=== PATIENT | male | born 1990 | race Caucasian/White ===

== ENCOUNTER 2016-09-21 06:44 | Emergency (ER) | payer BC ==
[~2016-09-21] VITALS: Ht 190.5 cm; Wt 91.0 kg
[2016-09-21 06:53] VITALS: BP 152/91; PULSE 101; RESP 18; TEMP 98.3; O2SAT 95
[2016-09-21] MEDS ORDERED: GABA800T PO (06:56)
[2016-09-21] MEDS ORDERED: SODIUM CHLOR 0.9% 1000 ML INJ 1,000 ML IV ONE ×2 (07:07→09:45)
[2016-09-21] MEDS ORDERED: SODIUM CHLORIDE 0.9% FLUSH 10 ML FLUSH IVF PRN (07:15)
--- NOTE | 2016-09-21 07:21 | PD ---
HPI Chief Complaint: OD/ Ingestion Time Seen by Provider: 07:07 Travel History International Travel<30 days: No Contact w/Intl Traveler<30days: No Traveled to known affect area: No History of Present Illness HPI This is a 26-year-old gentleman with a history of polysubstance abuse, who presents today via EMS stating that he tried to kill himself last night. The patient states he went to the beach and used cocaine. He stated after using cocaine he injected himself with morphine hoping to kill himself. When asked why he wanted to kill himself, patient states that he has a lot of stress in his life and just doesn't want to deal with it anymore. The patient denies any other ingestion. The patient states that he's has attempted suicide in the past by taking an overdose of Seroquel for which she is allergic to. There are no other complaints at the time of my examination. PFSH Past Medical History Asthma: Yes Diminished Hearing: No Musculoskeletal: Yes (CHRONIC R SHOULDER PAIN) Seizures: Yes Tetanus Vaccination: Unknown Influenza Vaccination: Yes Past Surgical History Other Surgery: Yes (WISDOM TEETH REMOVED) Social History Alcohol Use: Yes (1/2 HANDLE PER NIGHT) Tobacco Use: Yes (1 PPD) Substance Use: Yes (HEROIN, COCAINE, MORPHINE) Allergies-Medications (Allergen,Severity, Reaction): Coded Allergies: Seroquel (Verified Adverse Reaction, Unknown, Irritability/Anxiety, ) Reported Meds & Prescriptions Reported Meds & Active Scripts Active Reported Gabapentin 800 Mg Tab 800 Mg PO TID Review of Systems Except as stated in HPI: all other systems reviewed are Neg HENT: No: Headaches, Lightheadedness, Neck Pain Cardiovascular: No: Chest Pain or Discomfort Respiratory: No: Cough, Shortness of Breath Gastrointestinal: Positive: Nausea, No: Vomiting, Abdominal Pain Musculoskeletal: No: Weakness, Pain Neurologic: No: Weakness, Dizziness, Headache, Slurred Speech Psychiatric: Positive: Depression, Suicidal Ideations, Substance Abuse, No: Homicidal Ideation Physical Exam Narrative GENERAL: Well-developed well-nourished male in no acute respiratory distress. The patient was cooperative and answering questions appropriately SKIN: Warm and dry. HEAD: Atraumatic. Normocephalic. EYES: Pupils equal and round, no outwardly dilated pupils.. No scleral icterus. No injection or drainage. ENT: No nasal bleeding or discharge. Mucous membranes pink and moist. NECK: Trachea midline. No JVD. CARDIOVASCULAR: Tachycardic with regular rhythm. No murmur appreciated. RESPIRATORY: No accessory muscle use. Clear to auscultation. GASTROINTESTINAL: Abdomen soft, non-tender, nondistended. MUSCULOSKELETAL: No obvious deformities. No clubbing. No cyanosis. No edema. No skin lesions or abscesses appreciated. NEUROLOGICAL: Awake and alert. No obvious cranial nerve deficits. Motor grossly within normal limits. Normal speech. Data Data Last Documented VS Vital Signs Date Time Temp Pulse Resp B/P Pulse Ox O2 Delivery O2 Flow Rate FiO2 09/21/16 08:06 18 97 Nasal Cannula 2 09/21/16 06:53 98.3 101 152/91 Orders Complete Blood Count With Diff (09/21/16 07:07) Comprehensive Metabolic Panel (09/21/16 07:07) Chest, Single Ap (09/21/16 07:07) Iv Access Insert/Monitor (09/21/16 07:07) Ecg Monitoring (09/21/16 07:07) Oximetry (09/21/16 07:07) Sodium Chloride 0.9% Flush (Ns Flush) (09/21/16 07:15) Sodium Chlor 0.9% 1000 Ml Inj (Ns 1000 M (09/21/16 07:07) Drug Screen, Random Urine (09/21/16 07:07) Alcohol (Ethanol) (09/21/16 07:07) Salicylates (Aspirin) (09/21/16 07:07) Tylenol (Acetaminophen) (09/21/16 07:07) Ckmb (Isoenzyme) Profile (09/21/16 07:11) Troponin I (09/21/16 07:11) Calcium Carbonate Chew (Tums Chew) (09/21/16 08:00) CKMB (09/21/16 07:15) CKMB% (09/21/16 07:15) Electrocardiogram (09/21/16 06:53) Sodium Chlor 0.9% 1000 Ml Inj (Ns 1000 M (09/21/16 09:45) Labs Laboratory Tests Test 09/21/16 07:15 White Blood Count 12.0 TH/MM3 Red Blood Count 5.17 MIL/MM3 Hemoglobin 15.9 GM/DL Hematocrit 46.3 % Mean Corpuscular Volume 89.5 FL Mean Corpuscular Hemoglobin 30.8 PG Mean Corpuscular Hemoglobin 34.4 % Concent Red Cell Distribution Width 13.5 % Platelet Count 296 TH/MM3 Mean Platelet Volume 8.0 FL Neutrophils (%) (Auto) 48.0 % Lymphocytes (%) (Auto) 42.0 % Monocytes (%) (Auto) 7.7 % Eosinophils (%) (Auto) 1.7 % Basophils (%) (Auto) 0.6 % Neutrophils # (Auto) 5.8 TH/MM3 Lymphocytes # (Auto) 5.0 TH/MM3 Monocytes # (Auto) 0.9 TH/MM3 Eosinophils # (Auto) 0.2 TH/MM3 Basophils # (Auto) 0.1 TH/MM3 CBC Comment DIFF FINAL Differential Comment Sodium Level 139 MEQ/L Potassium Level 4.2 MEQ/L Chloride Level 104 MEQ/L Carbon Dioxide Level 25.4 MEQ/L Anion Gap 10 MEQ/L Blood Urea Nitrogen 18 MG/DL Creatinine 1.44 MG/DL Estimat Glomerular Filtration 60 ML/MIN Rate Random Glucose 93 MG/DL Calcium Level 8.9 MG/DL Total Bilirubin 0.3 MG/DL Aspartate Amino Transf 26 U/L (AST/SGOT) Alanine Aminotransferase 23 U/L (ALT/SGPT) Alkaline Phosphatase 79 U/L Total Creatine Kinase 423 U/L Creatine Kinase MB 1.8 NG/ML Creatine Kinase MB % 0.4 % Troponin I LESS THAN 0.02 NG/ML Total Protein 7.8 GM/DL Albumin 4.2 GM/DL Salicylates Level LESS THAN 1.7 MG/DL Acetaminophen Level LESS THAN 2.0 MCG/ML Ethyl Alcohol Level 144 MG/DL [facility] Medical Decision Making Medical Screen Exam Complete: Yes Emergency Medical Condition: Yes Differential Diagnosis Intentional overdose versus polysubstance abuse versus substance induced mood disorder versus electrolyte abnormalities. Narrative Course 26 year-old gentleman presents with complaints that he tried to commit suicide by doing cocaine and shooting up opiates. The patient states he's tried suicide in the past. The patient is awake alert and cooperative. He states he' s been not been drinking or eating well. His creatinine was 1.44. The patient' s been given 2 boluses of IV saline. Alcohol is 144. The rest of his labs are within normal limits. The patient will be medically cleared. He was placed on a Ram act by this physician as he was not Ram acted by the police when EMS brought him to the hospital. Diagnosis Primary Impression: SUICIDAL IDEATIONS Additional Impressions: Polysubstance abuse medically clear Harjinder Hurst MD Sep 21, 2016 07:21 Harjinder Hurst MD Sep 21, 2016 07:21
--- NOTE | 2016-09-21 07:42 | RADRPT ---
EXAM DATE/TIME: 09/21/2016 07:21 [place] COMPARISON: No previous studies available for comparison. INDICATIONS : Syncopal episode. Possible overdose. MEDICAL HISTORY : None. SURGICAL HISTORY : None. ENCOUNTER: Initial ACUITY: 1 day PAIN SCORE: 0/10 LOCATION: chest FINDINGS: A single view of the chest demonstrates the lungs to be symmetrically aerated without evidence of mas s, infiltrate or effusion. The cardiomediastinal contours are unremarkable. Osseous structures are intact. CONCLUSION: Normal examination. Edna Lin MD on September 21, 2016 at 7:40 Board Certified Radiologist. This report was verified electronically.
[2016-09-21 07:50] LABS: AUTOMATED NEUTROPHIL # 5.8 TH/MM3 (1.8-7.7); BASOPHIL # 0.1 TH/MM3 (0-0.2); BASOPHIL % 0.6 % (0.0-2.0); EOSINOPHIL # 0.2 TH/MM3 (0-0.4); EOSINOPHIL % 1.7 % (0.0-4.0); HEMATOCRIT 46.3 % (39.0-51.0); HEMO FLAGS DIFF FINAL; MEAN CELL VOLUME 89.5 FL (80.0-100.0); MEAN CORPUSCULAR HEMOGLOBIN 30.8 PG (27.0-34.0); MEAN CORPUSCULAR HGB CONC 34.4 % (32.0-36.0); MONO % 7.7 % (0.0-8.0); PLATELET COUNT 296 TH/MM3 (150-450); RED BLOOD COUNT 5.17 MIL/MM3 (4.50-5.90); RED CELL DISTRIBUTION WIDTH 13.5 % (11.6-17.2)
[2016-09-21] MEDS ORDERED: CALCIUM CARBONATE 500 MG CHEWABLE TAB CHEW ONE (08:00)
[2016-09-21 08:06] VITALS: RESP 18; O2SAT 97
[2016-09-21 08:13] LABS: ALKALINE PHOSPHATASE 79 U/L (45-117); TOTAL BILIRUBIN ADULT 0.3 MG/DL (0.2-1.0)
[2016-09-21 08:26] LABS: ALT (GPT) 23 U/L (12-78); ANION GAP 10 MEQ/L (5-15); AST (GOT) 26 U/L (15-37); BICARBONATE 25.4 MEQ/L (21.0-32.0); BLOOD UREA NITROGEN 18 MG/DL (7-18); CHLORIDE 104 MEQ/L (98-107); GLOMERULAR FILTRATION RATE 60 ML/MIN (>89); SODIUM (NA) 139 MEQ/L (136-145)
[2016-09-21 08:29] LABS: ACETAMINOPHEN LESS THAN 2.0 MCG/ML (10.0-30.0); CREATINE KINASE 423 U/L (39-308); POTASSIUM 4.2 MEQ/L (3.5-5.1)
[2016-09-21 08:41] LABS: CKMB 1.8 NG/ML (0.5-3.6)
[2016-09-21 11:29] LABS: AMPHETAMINE, URINE NEG (NEG); BARBITURATES, URINE NEG (NEG); COCAINE, URINE POS (NEG)
[2016-09-21 14:10] VITALS: BP 130/84; PULSE 98; RESP 16; TEMP 98.4; O2SAT 98
--- NOTE | 2016-09-21 15:51 | EKG ---
Date Performed: 09/21/2016 Time Performed: 06:53:52 PTAGE: 26 years EKG: SINUS TACHYCARDIA ST ELEVATION, PROBABLY EARLY REPOLARIZATION ABNORMAL RHYTHM ECG NO PREVIOUS TRACING DOCTOR: Kevin Vogt Interpretating Date/Time 09/21/2016 15:47:47
--- NOTE | 2016-09-21 16:19 | EKG ---
Date Performed: 09/21/2016 Time Performed: 09:48:38 PTAGE: 26 years EKG: Sinus rhythm Since previous tracing, no significant change noted NORMAL ECG PREVIOUS TRACING : 09/21/2016 06.53 DOCTOR: Kevin Vogt Interpretating Date/Time 09/21/2016 16:18:05
[2016-09-21 18:25] VITALS: BP 140/62; PULSE 65; RESP 18
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
[2016-09-21 22:16] VITALS: BP 109/62; PULSE 68; RESP 16; O2SAT 98
[2016-09-22 02:05] VITALS: BP 117/60; PULSE 53; RESP 16; O2SAT 97
[2016-09-22 06:25] VITALS: BP 120/67; PULSE 62; RESP 18; O2SAT 98
== END 2016-09-22 09:43 ==
LOC: NEPC 06:44 → NEPJ 09-22 09:43
DX: Z02.89 Encounter for other administrative examinations (principal); F19.94 Other psychoactive substance use, unspecified with psychoactive substance-induced mood disorder; F19.10 Other psychoactive substance abuse, uncomplicated; R45.851 Suicidal ideations; R94.31 Abnormal electrocardiogram [ECG] [EKG]; F17.200 Nicotine dependence, unspecified, uncomplicated; Z87.09 Personal history of other diseases of the respiratory system; Z87.39 Personal history of other diseases of the musculoskeletal system and connective tissue; Z86.69 Personal history of other diseases of the nervous system and sense organs
CPT/HCPCS: 71010; 80053; 80307; 82550; 82552; 84484; 85025; 93005; 96360; 96361; 99285; J7030

== ENCOUNTER 2017-12-01 05:10 | Emergency (ER) | payer BC ==
[~2017-12-01] VITALS: Ht 190.5 cm; Wt 100.0 kg
[~2017-12-01 05:10] MED LIST: GABA800T PO
[2017-12-01 05:13] VITALS: BP 129/64; PULSE 100; RESP 16; TEMP 99; O2SAT 99
[2017-12-01] MEDS ORDERED: TETANUS/DIPHTHERIA TOXOID ADULT 0.5 ML VIAL IM ONE (05:30)
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
[2017-12-01] MEDS ORDERED: TRAZ1TAB14 PO (05:31)
[2017-12-01 06:02] LABS: AUTOMATED NEUTROPHIL # 4.9 TH/MM3 (1.8-7.7); BASOPHIL # 0.1 TH/MM3 (0-0.2); BASOPHIL % 0.8 % (0.0-2.0); EOSINOPHIL # 0.3 TH/MM3 (0-0.4); EOSINOPHIL % 3.2 % (0.0-4.0); HEMATOCRIT 42.8 % (39.0-51.0); HEMOGLOBIN 14.7 GM/DL (13.0-17.0); LYMPHOCYTE # 4.1 TH/MM3 (1.0-4.8); MEAN CELL VOLUME 89.8 FL (80.0-100.0); MEAN CORPUSCULAR HEMOGLOBIN 30.8 PG (27.0-34.0); MEAN CORPUSCULAR HGB CONC 34.3 % (32.0-36.0); MONO % 6.5 % (0.0-8.0); MONOCYTE # 0.7 TH/MM3 (0-0.9); NEUT % 48.5 % (16.0-70.0); PLATELET COUNT 223 TH/MM3 (150-450); RED BLOOD COUNT 4.76 MIL/MM3 (4.50-5.90); RED CELL DISTRIBUTION WIDTH 13.9 % (11.6-17.2); WHITE BLOOD COUNT 10.1 TH/MM3 (4.0-11.0)
[2017-12-01 06:19] LABS: ALBUMIN 3.7 GM/DL (3.4-5.0); ALT (GPT) 30 U/L (12-78); AST (GOT) 27 U/L (15-37); BICARBONATE 21.8 MEQ/L (21.0-32.0); BLOOD UREA NITROGEN 10 MG/DL (7-18); CALCIUM 8.3 MG/DL (8.5-10.1); CHLORIDE 108 MEQ/L (98-107); CREATININE 1.23 MG/DL (0.60-1.30); GLOMERULAR FILTRATION RATE 72 ML/MIN (>89); GLUCOSE,RANDOM 93 MG/DL (74-106); SODIUM (NA) 143 MEQ/L (136-145)
[2017-12-01 06:30] LABS: ALKALINE PHOSPHATASE 70 U/L (45-117); TOTAL BILIRUBIN ADULT 0.3 MG/DL (0.2-1.0); TOTAL PROTEIN 6.5 GM/DL (6.4-8.2)
[2017-12-01 06:32] LABS: ACETAMINOPHEN LESS THAN 2.0 MCG/ML (10.0-30.0)
--- NOTE | 2017-12-01 09:11 | PD ---
Physical Exam Time Seen by Provider: 09:[address] Hewitt has evaluated patient and cleared the patient for discharge. Data Data Last Documented VS Vital Signs Date Time Temp Pulse Resp B/P (MAP) Pulse Ox O2 Delivery O2 Flow Rate FiO2 12/01/17 05:13 99.0 100 16 129/64 (85) 99 Orders Orders Tetanus/Diphtheria Tox Adult (Tetanus/Di (12/01/17 05:30) Wound Care (12/01/17 05:26) Complete Blood Count With Diff (12/01/17 05:26) Comprehensive Metabolic Panel (12/01/17 05:26) Thyroid Stimulating Hormone (12/01/17 05:26) Psych Screen (12/01/17 05:26) Drug Screen, Random Urine (12/01/17 05:26) Alcohol (Ethanol) (12/01/17 05:26) Salicylates (Aspirin) (12/01/17 05:26) Tylenol (Acetaminophen) (12/01/17 05:26) Diet Regular Basic (12/01/17 Breakfast) Labs Laboratory Tests Test 12/01/17 05:45 White Blood Count 10.1 TH/MM3 Red Blood Count 4.76 MIL/MM3 Hemoglobin 14.7 GM/DL Hematocrit 42.8 % Mean Corpuscular Volume 89.8 FL Mean Corpuscular Hemoglobin 30.8 PG Mean Corpuscular Hemoglobin Concent 34.3 % Red Cell Distribution Width 13.9 % Platelet Count 223 TH/MM3 Mean Platelet Volume 8.0 FL Neutrophils (%) (Auto) 48.5 % Lymphocytes (%) (Auto) 41.0 % Monocytes (%) (Auto) 6.5 % Eosinophils (%) (Auto) 3.2 % Basophils (%) (Auto) 0.8 % Neutrophils # (Auto) 4.9 TH/MM3 Lymphocytes # (Auto) 4.1 TH/MM3 Monocytes # (Auto) 0.7 TH/MM3 Eosinophils # (Auto) 0.3 TH/MM3 Basophils # (Auto) 0.1 TH/MM3 CBC Comment DIFF FINAL Differential Comment Blood Urea Nitrogen 10 MG/DL Creatinine 1.23 MG/DL Random Glucose 93 MG/DL Total Protein 6.5 GM/DL Albumin 3.7 GM/DL Calcium Level 8.3 MG/DL Alkaline Phosphatase 70 U/L Aspartate Amino Transf (AST/SGOT) 27 U/L Alanine Aminotransferase (ALT/SGPT) 30 U/L Total Bilirubin 0.3 MG/DL Sodium Level 143 MEQ/L Potassium Level 3.5 MEQ/L Chloride Level 108 MEQ/L Carbon Dioxide Level 21.8 MEQ/L Anion Gap 13 MEQ/L Estimat Glomerular Filtration Rate 72 ML/MIN Thyroid Stimulating Hormone 3rd Gen 1.330 uIU/ML Salicylates Level 2.5 MG/DL Urine Opiates Screen NEG Acetaminophen Level LESS THAN 2.0 MCG/ML Urine Barbiturates Screen NEG Urine Amphetamines Screen NEG Urine Benzodiazepines Screen NEG Urine Cocaine Screen POS Urine Cannabinoids Screen NEG Ethyl Alcohol Level 101 MG/DL MDM Supervised Visit with [facility]: No Narrative Course Dr. Hewitt has evaluated patient and cleared the patient for discharge. Patient has a follow-up appointment with his psychiatrist sometime this month, but cannot verify the exact date. patient contracts safety. Denies suicidal or homicidal ideations. Patient will be provided community resource packet to [facility] for follow-up. Has friends and family for support. Patient was medically cleared by alternate provider prior to psych screening. Patient has been evaluated by psychiatry and and is now cleared for discharge. Diagnosis Primary Impression: Substance induced mood disorder Referrals: [facility] (Out patient) [facility] Primary Care Physician Psychiatrist Tor [facility] Patient Instructions: Abuse of Alcohol (ED), Alcohol Dependence (ED), Alcohol Intoxication (ED), General Instructions, Polysubstance Abuse (ED) Additional Instruction: Contract safety to your self and others Stop using drugs Stop drinking alcohol or drink alcohol in moderation Follow-up in the community with support, such as with alcoholic anonymous and/ or her Narcotics Anonymous Follow-up with psychiatry Follow-up with primary care provider Follow-up with [facility] Return to the emergency department immediately with worsening of symptoms Med/Other Pt SpecificInfo: No Change to Meds, No Meds Exist/No RX given Disposition: 01 DISCHARGE HOME Condition: Stable Shu Feliciano Dec 01, 2017 09:11
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
== END 2017-12-01 12:03 | disposition home or self-care (01) ==
LOC: NEPD 05:10
DX: F10.14 Alcohol abuse with alcohol-induced mood disorder (principal); F14.10 Cocaine abuse, uncomplicated; F17.200 Nicotine dependence, unspecified, uncomplicated; F31.9 Bipolar disorder, unspecified; Y90.5 Blood alcohol level of 100-119 mg/100 ml; Z23 Encounter for immunization; Z79.899 Other long term (current) drug therapy
CPT/HCPCS: 80053; 80307; 84443; 85025; 90471; 90714

== ENCOUNTER 2018-02-28 05:01 | Inpatient (IN) ==
[2018-02-28] MEDS ORDERED: Charcoal Activated Liq 25 GM/120 ML Bottle NG/OG ONE (05:22)
[2018-02-28] MEDS ORDERED: SOD CHLORIDE 0.9% IV.SIG ONE (05:53)
[2018-02-28 05:56] LABS: Baso # (Auto) 0.1 th/mm3 (0.0-0.2); Baso % (Auto) 0.7 % (0.0-2.0); Eos # (Auto) 0.1 th/mm3 (0.0-0.4); Eos % (Auto) 1.4 % (0.0-4.0); Hematocrit 42.1 % (39.0-51.0); Hemoglobin 14.4 gm/dL (13.0-17.0); Lymph # (Auto) 2.9 th/mm3 (1.0-4.8); Lymph % (Auto) 34.8 % (9.0-44.0); Mean Corpuscular HGB Conc 34.2 % (32.0-36.0); Mean Corpuscular Hemoglobin 31.6 pg (27.0-34.0); Mean Corpuscular Volume 92.4 fL (80.0-100.0); Mean Platelet Volume 8.2 fL (7.0-11.0); Mono # (Auto) 0.5 th/mm3 (0.0-0.9); Mono % (Auto) 6.5 % (0.0-8.0); Neut # (Auto) 4.8 th/mm3 (1.8-7.7); Neut % (Auto) 56.6 % (16.0-70.0); Platelet Count 206 th/mm3 (150-450); Red Blood Count 4.56 mil/mm3 (4.50-5.90); Red Cell Distribution Width 13.5 % (11.6-17.2); White Blood Count 8.5 th/mm3 (4.0-11.0)
--- NOTE | 2018-02-28 06:01 | ED ---
HPI General Chief Complaint: Psychiatric Symptoms Stated Complaint: psych eval/ DBPD Time Seen by Provider: 02/28/18 06:00 Source: patient Mode of arrival: ambulatory Limitations: no limitations History of Present Illness HPI Narrative: Patient took 20 tablets of 100 mg trazodone in an attempt to hurt himself he is depressed and was thinking of suicide and took an overdose intentionally. In the ER he is slightly sleepy but able to converse and ambulate without problem he says the ingestion happened within the last hour prior to arrival in the ER and he is immediately given activated charcoal and labs are sent fluid is started he is cooperative at this time psych screen labs for psych clearance and he will be observed for 6-8 hours before being medically cleared for psych eval Related Data Home Medications Medication Instructions Recorded Confirmed esomeprazole magnesium [Nexium] 40 mg PO DAILY 02/28/18 02/28/18 gabapentin 800 mg PO QID 02/28/18 02/28/18 Allergies Allergy/AdvReac Type Severity Reaction Status Date / Time quetiapine AdvReac Unknown Irritabilit Unverified 12/01/17 05:30 y/Anxiety Review of Systems ROS: all other systems reviewed are negative [facility] Social History Social History Smoking Status: Current every day smoker Tobacco Type: Cigarettes How Often Do You Have a Drink Containing Alcohol: 4 or more times a week Recent Travel in [facility] within the Last 8 Weeks: No Recent Out of Country Travel within the Last 8 Weeks: No Substance Abuse Detail Crack/Cocaine: Substance Use Status: Active Route Used Substance Abuse: Inhalation Substance Frequency: OCCASIONALLY Reason for Use: Get High Immunization History Tetanus Immunization: Unsure Exam Narrative Exam Narrative: GENERAL: cooperative slightly sleepy SKIN: Warm and dry. HEAD: Atraumatic. Normocephalic. EYES: Pupils equal and round. No scleral icterus. No injection or drainage. ENT: No nasal bleeding or discharge. Mucous membranes pink and moist. NECK: Trachea midline. No JVD. CARDIOVASCULAR: Regular rate and rhythm. RESPIRATORY: No accessory muscle use. Clear to auscultation. Breath sounds equal bilaterally. GASTROINTESTINAL: Abdomen soft, non-tender, nondistended. Hepatic and splenic margins not palpable. MUSCULOSKELETAL: Extremities without clubbing, cyanosis, or edema. No obvious deformities. NEUROLOGICAL: Awake and alert. No obvious cranial nerve deficits. Motor grossly within normal limits. Five out of 5 muscle strength in the arms and legs. Normal speech. PSYCHIATRIC: Appropriate mood and affect; insight and judgment normal. Course Initial Documented Vital Signs Pulse Rate 180 H 02/28/18 05:15 Respiratory Rate 16 02/28/18 05:15 Blood Pressure 117/53 L 02/28/18 05:15 Pulse Oximetry 96 02/28/18 05:15 Last Documented Vital Signs Temperature 98.9 F 03/01/18 03:00 Pulse Rate 92 H 03/01/18 09:00 Respiratory Rate 17 03/01/18 09:00 Blood Pressure 108/71 03/01/18 09:00 Pulse Oximetry 94 L 03/01/18 03:00 Critical Care Time Critical Care Time: Yes Total Critical Care Time: 30 (airwat evaluation and activated charchoal and constant re-eval of somnolence to arouse and assure aiway and cardiac conduction remain stable admit ICU) Attestation: airway and cardiac monitoring Medical Decision Making MDM Narrative Medical decision making narrative: pt given ACTIVATED CHARCHOAL 50 gr PO and supportive care with NS and close observation for airway protection , He is maintaining his airway without any need for intubation at this time 98% sat yinka RR Medical Screen Exam Complete: Yes Emergency Medical Condition: Yes Differential Diagnosis Differential Diagnosis: pt took trazadone overdose and polysubstance possible SI with attempt , and severe somnolence Lab Data Result diagrams: 03/01/18 03:10 03/01/18 03:10 Lab Results 02/28/18 02/28/18 02/28/18 Range/Units 05:45 05:45 05:45 WBC 8.5 (4.0-11.0) th/mm3 RBC 4.56 (4.50-5.90) mil/mm3 Hgb 14.4 (13.0-17.0) gm/dL Hct 42.1 (39.0-51.0) % MCV 92.4 (80.0-100.0) fL MCH 31.6 (27.0-34.0) pg MCHC 34.2 (32.0-36.0) % RDW 13.5 (11.6-17.2) % Plt Count 206 (150-450) th/mm3 MPV 8.2 (7.0-11.0) fL Neut % (Auto) 56.6 (16.0-70.0) % Lymph % (Auto) 34.8 (9.0-44.0) % King % (Auto) 6.5 (0.0-8.0) % Eos % (Auto) 1.4 (0.0-4.0) % Baso % (Auto) 0.7 (0.0-2.0) % Neut # (Auto) 4.8 (1.8-7.7) th/mm3 Lymph # (Auto) 2.9 (1.0-4.8) th/mm3 King # (Auto) 0.5 (0.0-0.9) th/mm3 Eos # (Auto) 0.1 (0.0-0.4) th/mm3 Baso # (Auto) 0.1 (0.0-0.2) th/mm3 WBC Differential . Differential Comment Auto diff final PT (9.8-11.6) sec INR Ratio APTT (24.3-30.1) sec Sodium 143 (136-145) meq/L Potassium 3.4 L (3.5-5.1) meq/L Chloride 106 (98-107) meq/L Carbon Dioxide 21.0 (21.0-32.0) meq/L Anion Gap 16 H (5-15) meq/L BUN 9 (7-18) mg/dL Creatinine 1.29 (0.60-1.30) mg/dL Estimated GFR 68 L (>89) mL/min Random Glucose 89 (74-106) mg/dL Calcium 8.0 L (8.5-10.1) mg/dL Prot Corrected Calcium (8.5-10.1) mg/dL Phosphorus (2.5-4.9) mg/dL Magnesium (1.5-2.5) mg/dL Total Bilirubin 0.3 (0.2-1.0) mg/dL AST 22 (15-37) U/L ALT 30 (12-78) U/L Alkaline Phosphatase 74 (45-117) U/L Total Creatine Kinase (39-308) U/L CK-MB (CK-2) (0.5-3.6) ng/mL CK-MB (CK-2) % (0.0-4.0) % Total Protein 6.8 (6.4-8.2) g/dL Albumin 3.7 (3.4-5.0) g/dL TSH 1.220 (0.358-3.740) uIU/mL Nasal Screen MRSA (PCR) (Negative) Salicylates 2.8 (2.8-20.0) mg/dL Urine Opiates Screen (Neg) Acetaminophen Less than 2.0 L (10.0-30.0) mcg/mL Ur Barbiturates Screen (Neg) Ur Amphetamines Screen (Neg) U Benzodiazepines Scrn (Neg) Urine Cocaine Screen (Neg) U Cannabinoids Screen (Neg) Serum Alcohol 93 H (0-5) mg/dL 02/28/18 02/28/18 02/28/18 Range/Units 08:13 09:45 14:00 WBC (4.0-11.0) th/mm3 RBC (4.50-5.90) mil/mm3 Hgb (13.0-17.0) gm/dL Hct (39.0-51.0) % MCV (80.0-100.0) fL MCH (27.0-34.0) pg MCHC (32.0-36.0) % RDW (11.6-17.2) % Plt Count (150-450) th/mm3 MPV (7.0-11.0) fL Neut % (Auto) (16.0-70.0) % Lymph % (Auto) (9.0-44.0) % King % (Auto) (0.0-8.0) % Eos % (Auto) (0.0-4.0) % Baso % (Auto) (0.0-2.0) % Neut # (Auto) (1.8-7.7) th/mm3 Lymph # (Auto) (1.0-4.8) th/mm3 King # (Auto) (0.0-0.9) th/mm3 Eos # (Auto) (0.0-0.4) th/mm3 Baso # (Auto) (0.0-0.2) th/mm3 WBC Differential Differential Comment PT (9.8-11.6) sec INR Ratio APTT (24.3-30.1) sec Sodium (136-145) meq/L Potassium (3.5-5.1) meq/L Chloride (98-107) meq/L Carbon Dioxide (21.0-32.0) meq/L Anion Gap (5-15) meq/L BUN (7-18) mg/dL Creatinine (0.60-1.30) mg/dL Estimated GFR (>89) mL/min Random Glucose (74-106) mg/dL Calcium (8.5-10.1) mg/dL Prot Corrected Calcium (8.5-10.1) mg/dL Phosphorus (2.5-4.9) mg/dL Magnesium (1.5-2.5) mg/dL Total Bilirubin (0.2-1.0) mg/dL AST (15-37) U/L ALT (12-78) U/L Alkaline Phosphatase (45-117) U/L Total Creatine Kinase 386 H (39-308) U/L CK-MB (CK-2) 2.9 (0.5-3.6) ng/mL CK-MB (CK-2) % 0.8 (0.0-4.0) % Total Protein (6.4-8.2) g/dL Albumin (3.4-5.0) g/dL TSH (0.358-3.740) uIU/mL Nasal Screen MRSA (PCR) Not detected (Negative) Salicylates (2.8-20.0) mg/dL Urine Opiates Screen Neg (Neg) Acetaminophen (10.0-30.0) mcg/mL Ur Barbiturates Screen Neg (Neg) Ur Amphetamines Screen Neg (Neg) U Benzodiazepines Scrn Neg (Neg) Urine Cocaine Screen Pos H (Neg) U Cannabinoids Screen Neg (Neg) Serum Alcohol (0-5) mg/dL 02/28/18 02/28/18 03/01/18 Range/Units 14:00 15:03 03:10 WBC 6.6 9.0 (4.0-11.0) th/mm3 RBC 4.46 L 4.16 L (4.50-5.90) mil/mm3 Hgb 13.9 13.1 (13.0-17.0) gm/dL Hct 41.7 39.1 (39.0-51.0) % MCV 93.6 93.9 (80.0-100.0) fL MCH 31.3 31.5 (27.0-34.0) pg MCHC 33.4 33.5 (32.0-36.0) % RDW 13.8 13.7 (11.6-17.2) % Plt Count 192 168 (150-450) th/mm3 MPV 8.1 8.3 (7.0-11.0) fL Neut % (Auto) 40.3 52.2 (16.0-70.0) % Lymph % (Auto) 43.4 34.4 (9.0-44.0) % King % (Auto) 8.3 H 7.5 (0.0-8.0) % Eos % (Auto) 7.1 H 5.4 H (0.0-4.0) % Baso % (Auto) 0.9 0.5 (0.0-2.0) % Neut # (Auto) 2.7 4.7 (1.8-7.7) th/mm3 Lymph # (Auto) 2.9 3.1 (1.0-4.8) th/mm3 King # (Auto) 0.6 0.7 (0.0-0.9) th/mm3 Eos # (Auto) 0.5 H 0.5 H (0.0-0.4) th/mm3 Baso # (Auto) 0.1 0.0 (0.0-0.2) th/mm3 WBC Differential . . Differential Comment Auto diff final Auto diff final PT (9.8-11.6) sec INR Ratio APTT (24.3-30.1) sec Sodium 149 H (136-145) meq/L Potassium 4.3 D (3.5-5.1) meq/L Chloride 116 H D (98-107) meq/L Carbon Dioxide 23.7 (21.0-32.0) meq/L Anion Gap 9 (5-15) meq/L BUN 7 (7-18) mg/dL Creatinine 1.06 (0.60-1.30) mg/dL Estimated GFR 85 L (>89) mL/min Random Glucose 83 (74-106) mg/dL Calcium 7.2 L* D (8.5-10.1) mg/dL Prot Corrected Calcium 7.9 L (8.5-10.1) mg/dL Phosphorus 3.0 (2.5-4.9) mg/dL Magnesium 2.1 (1.5-2.5) mg/dL Total Bilirubin 0.3 (0.2-1.0) mg/dL AST 19 (15-37) U/L ALT 27 (12-78) U/L Alkaline Phosphatase 64 (45-117) U/L Total Creatine Kinase (39-308) U/L CK-MB (CK-2) (0.5-3.6) ng/mL CK-MB (CK-2) % (0.0-4.0) % Total Protein 5.8 L D (6.4-8.2) g/dL Albumin 3.2 L (3.4-5.0) g/dL TSH (0.358-3.740) uIU/mL Nasal Screen MRSA (PCR) (Negative) Salicylates (2.8-20.0) mg/dL Urine Opiates Screen (Neg) Acetaminophen (10.0-30.0) mcg/mL Ur Barbiturates Screen (Neg) Ur Amphetamines Screen (Neg) U Benzodiazepines Scrn (Neg) Urine Cocaine Screen (Neg) U Cannabinoids Screen (Neg) Serum Alcohol (0-5) mg/dL 03/01/18 03/01/18 Range/Units 03:10 03:10 WBC (4.0-11.0) th/mm3 RBC (4.50-5.90) mil/mm3 Hgb (13.0-17.0) gm/dL Hct (39.0-51.0) % MCV (80.0-100.0) fL MCH (27.0-34.0) pg MCHC (32.0-36.0) % RDW (11.6-17.2) % Plt Count (150-450) th/mm3 MPV (7.0-11.0) fL Neut % (Auto) (16.0-70.0) % Lymph % (Auto) (9.0-44.0) % King % (Auto) (0.0-8.0) % Eos % (Auto) (0.0-4.0) % Baso % (Auto) (0.0-2.0) % Neut # (Auto) (1.8-7.7) th/mm3 Lymph # (Auto) (1.0-4.8) th/mm3 King # (Auto) (0.0-0.9) th/mm3 Eos # (Auto) (0.0-0.4) th/mm3 Baso # (Auto) (0.0-0.2) th/mm3 WBC Differential Differential Comment PT 10.0 (9.8-11.6) sec INR 1.0 Ratio APTT 25.0 (24.3-30.1) sec Sodium 145 (136-145) meq/L Potassium 3.5 D (3.5-5.1) meq/L Chloride 113 H (98-107) meq/L Carbon Dioxide 23.3 (21.0-32.0) meq/L Anion Gap 9 (5-15) meq/L BUN 10 (7-18) mg/dL Creatinine 1.09 (0.60-1.30) mg/dL Estimated GFR 82 L (>89) mL/min Random Glucose 94 (74-106) mg/dL Calcium 7.7 L (8.5-10.1) mg/dL Prot Corrected Calcium (8.5-10.1) mg/dL Phosphorus 3.8 (2.5-4.9) mg/dL Magnesium 2.0 (1.5-2.5) mg/dL Total Bilirubin (0.2-1.0) mg/dL AST (15-37) U/L ALT (12-78) U/L Alkaline Phosphatase (45-117) U/L Total Creatine Kinase (39-308) U/L CK-MB (CK-2) (0.5-3.6) ng/mL CK-MB (CK-2) % (0.0-4.0) % Total Protein (6.4-8.2) g/dL Albumin (3.4-5.0) g/dL TSH (0.358-3.740) uIU/mL Nasal Screen MRSA (PCR) (Negative) Salicylates (2.8-20.0) mg/dL Urine Opiates Screen (Neg) Acetaminophen (10.0-30.0) mcg/mL Ur Barbiturates Screen (Neg) Ur Amphetamines Screen (Neg) U Benzodiazepines Scrn (Neg) Urine Cocaine Screen (Neg) U Cannabinoids Screen (Neg) Serum Alcohol (0-5) mg/dL Discharge Plan Discharge Disposition Patient Disposition: 01 Discharge Home Discharge Condition Condition: Good Discharge Order Discharge Orders: Discharge Order (Routine); Ordered 03/01/18 Ordered By: Chilo Ferrer Physicians Team ED Provider: Ahsan Mejía Primary Care Provider: Primary Care Eboni Odom Attending Provider: Chilo Ferrer Other Providers: Jean Best ED Status: Left Department Discharge Information Discharge Date/Time: 02/28/18 08:13
[2018-02-28 06:25] LABS: Alkaline Phosphatase 74 U/L (45-117); Total Protein 6.8 g/dL (6.4-8.2)
[2018-02-28] MEDS ORDERED: Bisacodyl 10 MG Supp RECTAL PRN (06:31)
[2018-02-28] MEDS ORDERED: Potassium Chlor 20 mEq Premix 20 MEQ/100 ML PIGGYBACK IV.SIG PRN ×2 (06:35)
[2018-02-28] MEDS ORDERED: Magnesium Sulfate Inj 4 GM in Sodium Chlor 0.9% Inj 92 ML IV.SIG PRN (06:35)
[2018-02-28] MEDS ORDERED: Potassium Phosphate 500 MG Soluble Tablet PO PRN ×2 (06:35)
[2018-02-28] MEDS ORDERED: Potassium Chloride 25 MEQ Effervescent Tablet PO PRN (06:35)
[2018-02-28] MEDS ORDERED: Potassium Chlor 40 mEq Premix 40 MEQ/100 ML PIGGYBACK IV.SIG PRN ×2 (06:35)
[2018-02-28] MEDS ORDERED: Dextrose 50% in Water 50 ML Vial IV.PUSH PRN (06:35)
[2018-02-28] MEDS ORDERED: Magnesium Oxide 400 MG Tablet PO PRN (06:35)
[2018-02-28] MEDS ORDERED: Magnesium Sulfate Inj 2 GM in Sodium Chlor 0.9% Inj 96 ML IV.SIG PRN (06:35)
[2018-02-28] MEDS ORDERED: Sodium Phosphate Inj 30 MMOL in Sodium Chlor 0.9% Inj 250 ML IV.SIG PRN (06:35)
[2018-02-28] MEDS ORDERED: Potassium Phosphate Inj 30 MMOL in Sodium Chlor 0.9% Inj 250 ML IV.SIG PRN (06:35)
[2018-02-28 06:45] LABS: Alanine Aminotransferase 30 U/L (12-78); Albumin 3.7 g/dL (3.4-5.0); Anion Gap 16 meq/L (5-15); Aspartate Aminotransferase 22 U/L (15-37); Blood Urea Nitrogen 9 mg/dL (7-18); Chloride 106 meq/L (98-107); Glomerular Filtration Rate 68 mL/min (>89); Glucose,Random 89 mg/dL (74-106); Potassium 3.4 meq/L (3.5-5.1); Sodium 143 meq/L (136-145)
[2018-02-28] MEDS ORDERED: Sod Chloride 0.9% Inj 1,000 ML IV.CONT SCH (06:45)
[2018-02-28 06:46] LABS: Alcohol 93 mg/dL (0-5)
[2018-02-28] MEDS ORDERED: Senna/Docusate Sodium 8.6/50 MG Tablet PO SCH (09:00)
[2018-02-28] MEDS: Heparin - SQ 10,000 UNITS/ML Vial SQ SCH ×2 (09:10→21:31)
[2018-02-28] MEDS ORDERED: Folic Acid 1 MG Tablet PO SCH (09:15)
--- NOTE | 2018-02-28 09:50 | MH ---
cc: Sylwia Ward MD DATE OF ADMISSION: 02/28/2018 HISTORY OF PRESENT ILLNESS: The patient is a 27-year-old male with a history of bronchial asthma, who presented to [facility] ED with altered mental status. Per ED records, patient took 20 tablets of 100 mg of trazodone in attempt to hurt himself. The patient was thinking of suicide and is depressed. He was given activated charcoal and IV fluids. His alcohol level is 93 and a urine drug screen is pending. Most of the history was obtained from reviewing medical records. He is on room air oxygen and afebrile. PAST MEDICAL HISTORY: Significant for bronchial asthma, chronic pain in the left shoulder. PAST SURGICAL HISTORY: Previous wisdom teeth removed. ALLERGIES: QUETIAPINE. SOCIAL HISTORY: Smoker. Active drinker. FAMILY HISTORY: Noncontributing to present illness. REVIEW OF SYSTEMS: Limited. PHYSICAL EXAMINATION: GENERAL: A 27-year-old male lying in bed, in no acute respiratory distress. VITAL SIGNS: Afebrile, pulse of 81, respiratory rate of 14, blood pressure 114/57, saturation 97%. HEENT: Atraumatic, normocephalic. Pupils are equal, round, reactive to light and accommodation. Extraocular muscles intact. Conjunctivae pink. Nonicteric sclerae. Oral mucosa within normal. NECK: Supple. No JVD, adenopathy, or thyromegaly. Trachea midline. CARDIOVASCULAR: Regular rate and rhythm. Normal S1, S2. No murmurs, rubs or gallops noted. PULMONARY: Bilateral equal air entry. No rales or wheezing. ABDOMEN: Soft, nontender, nondistended, positive bowel sounds. EXTREMITIES: No cyanosis, clubbing, edema. NEUROLOGIC: No focal sensory deficit. LABORATORY DATA: Sodium 143, potassium 3.4, chloride 106, CO2 of 21, BUN 9, creatinine 1.29, glucose of 89. LFTs within normal. CBC: WBC 8.5, hemoglobin 14.4, hematocrit 42, platelet count 206. Alcohol level 93. Tylenol level less than 2.0. Aspirin 2.8. EKG showed sinus rhythm with a rate of 90 beats per minute. ASSESSMENT: 1. Altered mental status. 2. Drug overdose with trazodone. 3. Depression and suicide attempt. 4. Alcohol use with elevated alcohol level on arrival. 5. Hypokalemia. 6. History of bronchial asthma. RECOMMENDATIONS: 1. Monitor neuro status closely and avoid any sedatives. Place on thiamine, multivitamins and folic acid. 2. Obtain a urine drug screen. 3. Consult psych service. 4. Monitor heart rate and blood pressure and maintain MAP greater than 65 mmHg. Continue with IV fluids and that is at 84 mL an hour. 5. Monitor renal function, I's and O's, and electrolyte replacement per protocol. We will need potassium replacement. 6. Keep n.p.o. for now until mental status improves and place on Protonix 40 mg daily for GI prophylaxis. 7. Monitor for signs of infection, which include fever and WBC. Burrell culture if spikes a fever. 8. Monitor CBC. 9. Sliding scale insulin with Accu-Cheks to maintain euglycemia. 10. Continue with oxygen p.r.n. to maintain saturations above 92% and bronchodilators on a p.r.n. basis. 11. Monitor CBC. 12. GI prophylaxis with Protonix and DVT prophylaxis with SCDs and heparin subcutaneous. 13. Further recommendations will be based on hospital course. MD CHRISTIAN Rincon/gatito , 09:12 AM , 09:23 AM
--- NOTE | 2018-02-28 09:56 | P.CONPSY ---
Provisional Diagnosis Admission Date: February 28, 2018 06:28 [place].: Substance-induced mood disorder, alcohol abuse with intoxication, cocaine abuse History of Present Illness Service: Psychiatry Consult date: 02/28/18 Requesting Physician: Sylwia Ward Reason for Consult: Leanna lala Primary Care Provider: No Primary Care Physician History of Present Illness: Patient is a 27-year-old white male comes for under Ram act by the [place] [employer] dated 02/28/2018 at 4:55 AM that document reviewed essentially states he took quite a few trazodone approximately 15 days worth in an attempt to commit suicide please stated in my presence she was wanting to kill himself. Patient seen screen in the ED blood alcohol level of 93. Patient has just given a urine specimen here in the intensive care unit. Though he does acknowledge using cocaine at the present time patient laying quietly in his bed in the intensive care unit markedly disheveled with odor of alcohol on his breath though he is somewhat sleepy but arousable to alert and oriented. He acknowledges being an alcoholic acknowledges daily drinking so with drinking of blacking out and passing out. He acknowledges being a detox number of years ago and [place]. He denies other legal issues related to drinking though I do somewhat question its veracity. He also states he uses cocaine on a regular basis. Of interest patient was seen here on 12/01/2017 at that time his urine toxicology was positive for cocaine blood alcohol level of 102 he was released and sent home. Patient states she moved up here in June to help out with his parents who are the late 50s nearly 60s. 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 But he is back with his parents to help them and also because is financially beneficial to him. Patient states when he gets drunk he gets depressed. He does acknowledge past psychiatric history of depression with hospitalizations in [place]. He denies suicidality at this time denies suicidality homicidality voices or visions. He says he is , has no children, denies any past physical or sexual abuse. Denies mental health issues in the family. At this time patient does not meet Ram criteria will lift Ram act. It is okay by psych for patient to be discharged when medically clear and stable. The trazodone he says he is being prescribed is prescribed by his primary care physician. I would suggest the patient perhaps go to [facility] for further substance abuse assessment and also for further mental health assessment. Of course he also would recommend absolute abstinence from alcohol and other substances of abuse Review of Systems See med surge assessments PMFSH - History History Provided By: Patient - Medical History Medical History: Medical History (Last Updated 02/28/18 @ 05:24 by Emma Ferraro) Asthma Chronic pain in left shoulder [place] teeth removed - Tobacco History Tobacco Use In Past 30 Days: Yes Smoking Status: Current every day smoker Tobacco Type: Cigarettes - Alcohol History How Often Do You Have a Drink Containing Alcohol: 4 or more times a week - Substance Use Type Crack/Cocaine Status: Active Route Used: Inhalation Frequency: OCCASIONALLY Reason for Use: Get High - Travel History Recent Travel in the [place] Within the Last 8 Weeks: No Recent Travel Out of the Country Within the Last 8 Weeks: No - Immunization History Tetanus Immunization: Unsure Medications and Allergies Active Medications: Active Medications Al Hydroxide/Mg Hydroxide (Milk Of Kg Liq) 30 ml PO Q12H PRN PRN Reason: Mild Constipation Albuterol (Albuterol Neb (Prn)) 2.5 mg NEB Q2HR NEB PRN PRN Reason: SHORTNESS OF BREATH/WHEEZING Bisacodyl (Dulcolax Supp) 10 mg RECTAL DAILY PRN PRN Reason: SEVERE CONSITIPATION Chlorhexidine Gluconate (Chlorhexidine 2% Cloth) 3 pack TOPICAL DAILY@0400 [facility] Stop: 03/06/18 03:59 Chlorhexidine Gluconate (Chlorhexidine 2% Cloth) 3 pack TOPICAL DAILY@0400 PRN PRN Reason: Extra cloth needed Stop: 03/06/18 03:59 Dextrose (D50w Vial) 50 ml IV.PUSH UNSCH PRN PRN Reason: PER HYPOGLYCEMIA PROTOCOL Folic Acid (Folic Acid) 1 mg PO DAILY [facility] Last Admin: 02/28/18 09:20 Dose: 1 mg Glucagon (Glucagon Inj) 1 mg OTHER PRN PRN PRN Reason: for Hypoglycemia Protocol Heparin Sodium (Porcine) (Heparin Inj) 5,000 units SQ Q12H [facility] Last Admin: 02/28/18 09:10 Dose: 5,000 units Sodium Chloride (Ns Inj) 1,000 mls @ 84 mls/hr IV.CONT .[id number] [facility] Last Admin: 02/28/18 09:10 Dose: 84 mls/hr Magnesium Sulfate Inj 4 gm/ (Sodium Chloride) 100 mls @ 50 mls/hr IV.SIG UNSCH PRN PRN Reason: For Magnesium 0.9 - 1.1 mg/dL Magnesium Sulfate Inj 2 gm/ (Sodium Chloride) 100 mls @ 50 mls/hr IV.SIG UNSCH PRN PRN Reason: For Magnesium 1.2 - 1.6 mg/dL Potassium Chloride (Kcl 40 Meq Premix Inj) 40 meq in 100 mls @ 25 mls/hr IV.SIG Q2H PRN PRN Reason: For Potassium 2.8 - 3.2 mEq/L Potassium Chloride (Kcl 20 Meq Premix Inj) 20 meq in 100 mls @ 50 mls/hr IV.SIG Q2H PRN PRN Reason: For Potassium 3.3 - 3.5 mEq/L Potassium Chloride (Kcl 40 Meq Premix Inj) 40 meq in 100 mls @ 25 mls/hr IV.SIG UNSCH PRN PRN Reason: For Potassium 3.3 - 3.5 mEq/L Potassium Chloride (Kcl 20 Meq Premix Inj) 20 meq in 100 mls @ 50 mls/hr IV.SIG Q2H PRN PRN Reason: For Potassium 2.8 - 3.2 mEq/L Potassium Phosphate 30 mmol/ (Sodium Chloride) 260 mls @ 42 mls/hr IV.SIG UNSCH PRN PRN Reason: SEE LABEL COMMENTS Sodium Phosphate 30 mmol/ (Sodium Chloride) 260 mls @ 42 mls/hr IV.SIG UNSCH PRN PRN Reason: For Phosphorus < 2.5 mg/dL Insulin Aspart (Novolog Insulin Correctional Sugar Inj) 0 unit SQ Q6HR EDNA; Protocol Lactulose (Lactulose Liq) 30 ml PO DAILY PRN PRN Reason: SEVERE CONSITIPATION Magnesium Oxide (Mag-Ox) 800 mg PO UNSCH PRN PRN Reason: For Magnesium 1.2 - 1.6 mg/dL Multivitamins (Theragran) 1 tab PO DAILY [facility] Last Admin: 02/28/18 09:20 Dose: 1 tab Ondansetron HCl (Zofran Inj) 4 mg IV.PUSH Q6H PRN PRN Reason: NAUSEA OR VOMITING Pantoprazole Sodium (Protonix) 40 mg PO DAILY [facility] Last Admin: 02/28/18 09:10 Dose: 40 mg Potassium Bicarb/Potassium Chloride (K-Lyte Cl Eff) 50 meq PO UNSCH PRN PRN Reason: For Potassium 3.3 - 3.5 mEq/L Potassium Phosphate (K-Phos Original) 2,000 mg PO Q4H PRN PRN Reason: Phosphorus Less Than 2.5 mg/dL Potassium Phosphate (K-Phos Original) 2,000 mg PO UNSCH PRN PRN Reason: SEE LABEL COMMENTS Senna/Docusate Sodium (Ashley-Colace) 1 tab PO BID [facility] Last Admin: 02/28/18 09:10 Dose: Not Given Sennosides (Senokot) 17.2 mg PO Q12H PRN PRN Reason: Moderate Constipation Sodium Chloride (Ns Flush) 2 ml IV.FLUSH BID [facility] Last Admin: 02/28/18 09:10 Dose: 2 ml Sodium Chloride (Ns Flush) 2 ml IV.FLUSH PRN PRN PRN Reason: FLUSH AFTER USING IV ACCESS Thiamine HCl (Vitamin B1) 100 mg PO DAILY [facility] Last Admin: 02/28/18 09:20 Dose: 100 mg Allergies Allergy/AdvReac Type Severity Reaction Status Date / Time quetiapine AdvReac Unknown Irritabilit Unverified 12/01/17 05:30 y/Anxiety Home Medications Medication Instructions Recorded Confirmed Type esomeprazole magnesium [Nexium] 40 mg PO DAILY 02/28/18 02/28/18 History gabapentin 800 mg PO QID 02/28/18 02/28/18 History trazodone 200 mg PO HS 02/28/18 02/28/18 History Exam Vital signs: Vital Signs 02/28/18 05:15 02/28/18 05:30 02/28/18 05:36 Temperature 98.8 F Pulse Rate 180 H 103 H 96 H Respiratory Rate 16 16 20 Blood Pressure 117/53 L 80/45 L Pulse Oximetry 96 98 02/28/18 05:37 02/28/18 06:04 02/28/18 07:09 Temperature Pulse Rate 81 81 Respiratory Rate 14 13 Blood Pressure 80/45 L 93/53 L 91/54 L Pulse Oximetry 99 99 Intake & Output 02/27/18 02/28/18 02/28/18 18:59 06:59 18:59 Intake Total 4000 / 4000 Balance 4000 / 4000 Weight 102.058 kg Intake: IV 4000 / 4000 NS Inj 4,000 ML @ Wide Open IV. 4000 / 4000 SIG BOLUS ONE Rx#:[id number] Narrative: Patient laying in bed in no acute distress, patient moving all 4 extremities in bed, he is in no respiratory distress, no complaints of abdominal pain Mental Status Examination Appearance: Disheveled, Well dressed/well groomed, Malodorous Consciousness: Alert, Other (Sleepy) Orientation: Person, Place, Date/Time Motor Activity: Other Speech: Unremarkable (Patient laying in bed) Language: Adequate Fund of Knowledge: Adequate Attention and Concentration: Adequate (Fair) Memory: Unremarkable (Fair fair) Mood: Other (Euthymic to somewhat restricted) Affect: Other (Decreased range and intensity) Thought Process & Associations: Intact Thought Content: Appropriate Hallucination Type: None Delusion Type: None Suicidal Ideation: No Suicidal Plan: No Suicidal Intention: No Homicidal Ideation: No Homicidal Plan: No Homicidal Intention: No Insight: Poor Judgment: Poor Assessment and Plan - Assessment (1) Substance induced mood disorder Code(s): F19.94 - Other psychoactive substance use, unspecified with psychoactive substance-induced mood disorder Status: Acute (2) Alcohol abuse with intoxication Code(s): F10.129 - Alcohol abuse with intoxication, unspecified Status: Acute (3) Cocaine abuse Code(s): F14.10 - Cocaine abuse, uncomplicated Status: Acute - Plan Plan: Estimated LOS: [] days At this time patient does not meet Ram act criteria will lift Ram act. It is okay by psych for discharge when he is medically clear and stable, would recommend voluntary outpatient substance abuse assessment through [facility] recommend AA and NA meetings, and absolute sobriety. Also recommend further mental health assessment perhaps through [facility] act also Justification for Continued Inpatient Stay: Per med surge team Discharge Planning: Per treatment team Request Healthcare Surrogate/Guardian Advocate?: No
[2018-02-28 10:40] LABS: Amphetamine Screen,Urine Neg (Neg); Barbiturate Screen,Urine Neg (Neg); Cannabinoid Screen,Urine Neg (Neg); Cocaine Screen,Urine Pos (Neg)
[2018-02-28 10:49] LABS: Opiate Screen,Urine Neg (Neg)
[2018-02-28 14:38] LABS: Baso # (Auto) 0.1 th/mm3 (0.0-0.2); Baso % (Auto) 0.9 % (0.0-2.0); Eos # (Auto) 0.5 th/mm3 (0.0-0.4); Eos % (Auto) 7.1 % (0.0-4.0); Hematocrit 41.7 % (39.0-51.0); Hemoglobin 13.9 gm/dL (13.0-17.0); Lymph # (Auto) 2.9 th/mm3 (1.0-4.8); Lymph % (Auto) 43.4 % (9.0-44.0); Mean Corpuscular HGB Conc 33.4 % (32.0-36.0); Mean Corpuscular Hemoglobin 31.3 pg (27.0-34.0); Mean Corpuscular Volume 93.6 fL (80.0-100.0); Mean Platelet Volume 8.1 fL (7.0-11.0); Mono # (Auto) 0.6 th/mm3 (0.0-0.9); Mono % (Auto) 8.3 % (0.0-8.0); Neut # (Auto) 2.7 th/mm3 (1.8-7.7); Neut % (Auto) 40.3 % (16.0-70.0); Platelet Count 192 th/mm3 (150-450); Red Blood Count 4.46 mil/mm3 (4.50-5.90); Red Cell Distribution Width 13.8 % (11.6-17.2); White Blood Count 6.6 th/mm3 (4.0-11.0)
[2018-02-28 15:09] LABS: Albumin 3.2 g/dL (3.4-5.0); Calcium 7.2 mg/dL (8.5-10.1); Carbon Dioxide 23.7 meq/L (21.0-32.0); Magnesium 2.1 mg/dL (1.5-2.5); Potassium 4.3 meq/L (3.5-5.1); Total Protein 5.8 g/dL (6.4-8.2)
[2018-02-28 15:25] LABS: CKMB Percent 0.8 % (0.0-4.0); Creatine Kinase MB 2.9 ng/mL (0.5-3.6)
--- NOTE | 2018-02-28 15:48 | ECG ---
Date Performed: 02/28/2018 Time Performed: 05:25:43 PTAGE: 27 years EKG: Sinus rhythm NORMAL ECG Since PREVIOUS TRACING , no significant change noted PREVIOUS TRACIN09/21/2016 09.48 DOCTOR: Ha Barnes Interpretating Date/Time 02/28/2018 15:48:11
--- NOTE | 2018-02-28 15:49 | ECG ---
Date Performed: 02/28/2018 Time Performed: 07:47:41 PTAGE: 27 years EKG: Sinus rhythm WITH SINUS ARRHYTHMIA NORMAL ECG Since PREVIOUS TRACING , no significant change noted PREVIOUS TRACIN02/28/2018 05.25 DOCTOR: Ha Barnes Interpretating Date/Time 02/28/2018 15:48:28
[2018-02-28] MEDS: Insulin NovoLOG Aspart Correctional Sugar Inj SQ SCH ×2 (16:16→19:14)
[2018-02-28] MEDS ORDERED: Temazepam 15 MG Capsule PO PRN (21:59)
[2018-03-01 03:49] LABS: Baso % (Auto) 0.5 % (0.0-2.0); Eos # (Auto) 0.5 th/mm3 (0.0-0.4); Eos % (Auto) 5.4 % (0.0-4.0); Hematocrit 39.1 % (39.0-51.0); Hemoglobin 13.1 gm/dL (13.0-17.0); Lymph # (Auto) 3.1 th/mm3 (1.0-4.8); Lymph % (Auto) 34.4 % (9.0-44.0); Mean Corpuscular HGB Conc 33.5 % (32.0-36.0); Mean Corpuscular Hemoglobin 31.5 pg (27.0-34.0); Mean Corpuscular Volume 93.9 fL (80.0-100.0); Mean Platelet Volume 8.3 fL (7.0-11.0); Mono # (Auto) 0.7 th/mm3 (0.0-0.9); Mono % (Auto) 7.5 % (0.0-8.0); Neut # (Auto) 4.7 th/mm3 (1.8-7.7); Neut % (Auto) 52.2 % (16.0-70.0); Platelet Count 168 th/mm3 (150-450); Red Blood Count 4.16 mil/mm3 (4.50-5.90); Red Cell Distribution Width 13.7 % (11.6-17.2)
[2018-03-01 03:59] LABS: Calcium 7.7 mg/dL (8.5-10.1); Carbon Dioxide 23.3 meq/L (21.0-32.0); Phosphorus 3.8 mg/dL (2.5-4.9); Potassium 3.5 meq/L (3.5-5.1)
[2018-03-01] MEDS ORDERED: Chlorhexidine Gluconate 2% 1 Pack (2 Cloths) TOPICAL PRN (04:00)
[2018-03-01] MEDS ORDERED: Chlorhexidine Gluconate 2% 1 Pack (2 Cloths) TOPICAL SCH (04:00)
[2018-03-01 05:47] VITALS: TEMP 98.9; O2SAT 94
--- NOTE | 2018-03-01 08:43 | P.PN ---
Subjective Interval history: Follow-up toxic encephalopathy/drug overdose with trazodone/suicidal attempt/ alcohol abuse March 01, 2018-patient seen and examined, alert and oriented 3. Regrets is asked wanting to end his life. No acute event overnight. Denies any chest pain or shortness of breath. Was cleared by psychiatry for discharge. Physical Exam Vital signs: Vital Signs 02/28/18 08:55 02/28/18 09:00 02/28/18 09:30 Temperature Pulse Rate 71 71 79 Respiratory Rate 12 12 14 Blood Pressure 94/53 L 88/53 L Pulse Oximetry 97 97 99 02/28/18 10:00 02/28/18 10:30 02/28/18 11:00 Temperature Pulse Rate 80 80 79 Respiratory Rate 13 13 12 Blood Pressure 100/53 L 87/45 L 88/51 L Pulse Oximetry 95 95 95 02/28/18 11:30 02/28/18 12:00 02/28/18 12:30 Temperature 98.0 F Pulse Rate 76 82 66 Respiratory Rate 12 22 12 Blood Pressure 93/51 L 94/50 L 96/52 L Pulse Oximetry 97 97 94 L 02/28/18 13:00 02/28/18 13:30 02/28/18 14:00 Temperature Pulse Rate 65 73 80 Respiratory Rate 11 L 9 L 18 Blood Pressure 95/51 L 101/59 L Pulse Oximetry 96 98 99 02/28/18 14:01 02/28/18 14:31 02/28/18 15:00 Temperature Pulse Rate 74 79 79 Respiratory Rate 13 30 H 22 Blood Pressure 115/65 131/66 115/58 L Pulse Oximetry 94 L 97 97 02/28/18 16:00 02/28/18 16:49 02/28/18 17:00 Temperature 98.0 F Pulse Rate 66 77 63 Respiratory Rate 24 20 20 Blood Pressure 115/70 121/64 Pulse Oximetry 98 96 98 02/28/18 18:00 02/28/18 19:00 02/28/18 20:00 Temperature 97.9 F Pulse Rate 65 80 74 Respiratory Rate 16 18 18 Blood Pressure 115/65 132/84 128/75 Pulse Oximetry 97 97 99 02/28/18 20:35 02/28/18 20:36 02/28/18 21:00 Temperature Pulse Rate 70 78 Respiratory Rate 16 20 Blood Pressure 118/74 Pulse Oximetry 99 99 02/28/18 22:00 02/28/18 23:00 02/28/18 23:29 Temperature 98.3 F Pulse Rate 87 66 87 Respiratory Rate 22 18 18 Blood Pressure 124/69 132/69 Pulse Oximetry 98 99 03/01/18 00:00 03/01/18 01:00 03/01/18 02:00 Temperature Pulse Rate 75 75 67 Respiratory Rate 20 21 20 Blood Pressure 121/65 123/73 110/65 Pulse Oximetry 97 97 96 03/01/18 03:00 03/01/18 04:00 03/01/18 04:02 Temperature 98.9 F Pulse Rate 59 L 54 L 76 Respiratory Rate 18 18 12 Blood Pressure 100/57 L 108/65 Pulse Oximetry 94 L 03/01/18 05:00 03/01/18 05:49 Temperature Pulse Rate 74 61 Respiratory Rate 20 16 Blood Pressure 107/58 L 107/58 L Pulse Oximetry Intake & Output 02/28/18 03/01/18 03/01/18 18:59 06:59 18:59 Intake Total 4720 / 4720 960 / 960 Output Total 2825 / 2825 2300 / 2300 Balance 1895 / 1895 -1340 / -1340 Intake: IV 4000 / 4000 NS Inj 4,000 ML @ Wide Open IV. 4000 / 4000 SIG BOLUS ONE Rx#:[id number] Oral 720 / 720 960 / 960 Output: Urine 2825 / 2825 2300 / 2300 Other: # Voids 4 Date of Last Bowel Movement 02/27/18 Narrative: GENERAL: NAD SKIN: Warm and dry. HEAD: Normocephalic. EYES: No scleral icterus. No injection or drainage. NECK: Supple, trachea midline. No JVD or lymphadenopathy. CARDIOVASCULAR: Regular rate and rhythm without murmurs, gallops, or rubs. RESPIRATORY: Breath sounds equal bilaterally. No accessory muscle use. GASTROINTESTINAL: Abdomen soft, non-tender, nondistended. MUSCULOSKELETAL: No cyanosis, or edema. BACK: Nontender without obvious deformity. No CVA tenderness. Results - Labs CBC & Chem 7: 03/01/18 03:10 03/01/18 03:10 Laboratory Results - last 24 hr 02/28/18 02/28/18 02/28/18 08:13 09:45 14:00 WBC RBC Hgb Hct MCV MCH MCHC RDW Plt Count MPV Neut % (Auto) Lymph % (Auto) [place] % (Auto) Eos % (Auto) Baso % (Auto) Neut # (Auto) Lymph # (Auto) [place] # (Auto) Eos # (Auto) Baso # (Auto) WBC Differential Differential Comment PT INR APTT Sodium Potassium Chloride Carbon Dioxide Anion Gap BUN Creatinine Estimated GFR Random Glucose Calcium Prot Corrected Calcium Phosphorus Magnesium Total Bilirubin AST ALT Alkaline Phosphatase Total Creatine Kinase 386 H CK-MB (CK-2) 2.9 CK-MB (CK-2) % 0.8 Total Protein Albumin Nasal Screen MRSA (PCR) Not detected Urine Opiates Screen Neg Ur Barbiturates Screen Neg Ur Amphetamines Screen Neg U Benzodiazepines Scrn Neg Urine Cocaine Screen Pos H U Cannabinoids Screen Neg 02/28/18 02/28/18 03/01/18 14:00 15:03 03:10 WBC 6.6 9.0 RBC 4.46 L 4.16 L Hgb 13.9 13.1 Hct 41.7 39.1 MCV 93.6 93.9 MCH 31.3 31.5 MCHC 33.4 33.5 RDW 13.8 13.7 Plt Count 192 168 MPV 8.1 8.3 Neut % (Auto) 40.3 52.2 Lymph % (Auto) 43.4 34.4 Roosevelt % (Auto) 8.3 H 7.5 Eos % (Auto) 7.1 H 5.4 H Baso % (Auto) 0.9 0.5 Neut # (Auto) 2.7 4.7 Lymph # (Auto) 2.9 3.1 Roosevelt # (Auto) 0.6 0.7 Eos # (Auto) 0.5 H 0.5 H Baso # (Auto) 0.1 0.0 WBC Differential . . Differential Comment Auto diff final Auto diff final PT INR APTT Sodium 149 H Potassium 4.3 D Chloride 116 H D Carbon Dioxide 23.7 Anion Gap 9 BUN 7 Creatinine 1.06 Estimated GFR 85 L Random Glucose 83 Calcium 7.2 L* D Prot Corrected Calcium 7.9 L Phosphorus 3.0 Magnesium 2.1 Total Bilirubin 0.3 AST 19 ALT 27 Alkaline Phosphatase 64 Total Creatine Kinase CK-MB (CK-2) CK-MB (CK-2) % Total Protein 5.8 L D Albumin 3.2 L Nasal Screen MRSA (PCR) Urine Opiates Screen Ur Barbiturates Screen Ur Amphetamines Screen U Benzodiazepines Scrn Urine Cocaine Screen U Cannabinoids Screen 03/01/18 03/01/18 03:10 03:10 WBC RBC Hgb Hct MCV MCH MCHC RDW Plt Count MPV Neut % (Auto) Lymph % (Auto) Roosevelt % (Auto) Eos % (Auto) Baso % (Auto) Neut # (Auto) Lymph # (Auto) Roosevelt # (Auto) Eos # (Auto) Baso # (Auto) WBC Differential Differential Comment PT 10.0 INR 1.0 APTT 25.0 Sodium 145 Potassium 3.5 D Chloride 113 H Carbon Dioxide 23.3 Anion Gap 9 BUN 10 Creatinine 1.09 Estimated GFR 82 L Random Glucose 94 Calcium 7.7 L Prot Corrected Calcium Phosphorus 3.8 Magnesium 2.0 Total Bilirubin AST ALT Alkaline Phosphatase Total Creatine Kinase CK-MB (CK-2) CK-MB (CK-2) % Total Protein Albumin Nasal Screen MRSA (PCR) Urine Opiates Screen Ur Barbiturates Screen Ur Amphetamines Screen U Benzodiazepines Scrn Urine Cocaine Screen U Cannabinoids Screen - Procedures none Assessment and Plan - Plan 27-year-old man with Toxic encephalopathy Second 2 OD on trazodone Resolved Drug overdose on trazodone Vital stable Patient currently stable Suicidal ideation and attempt Appreciate input from psychiatry, patient has been clear and Ram act has been lifted Alcohol abuse Alcohol counseling cessation provided Rally pack Patient has been clear for discharge Discharge patient to home Condition on discharge: Improved Regular Diet as tolerated Ad Karen activity Rx written: None Follow-up with primary care physician in 1 week
[2018-03-01 09:34] VITALS: BP 108/71; PULSE 92; RESP 17
== END 2018-03-01 09:30 | disposition home or self-care (01) ==
LOC: NEPE 05:01 → NEDA 06:28 → HIMC 08:05
PROVIDERS: ADMIT Hospitalist; ATTEND Hospitalist